=== PATIENT | female | born 1990 | race American Indian/Alaskan Native ===

== ENCOUNTER 2016-10-29 08:44 | Outpatient (CLI) | payer OTHER ==
--- NOTE | 2016-10-29 13:27 | Ultrasound Report ---
Pelvic and transvaginal sonography: History: Amenorrhea. Findings: Uterus measures 9.2 x 3.3 x 4.7 cm. Endometrial thickness 11 mm. No fluid in the endometrium. No mass. Ill-defined endometrial -myometrial interface. Right ovary 3.2 x 1.8 x 3.2 cm. No mass. Left ovary 2.4 x 2.4 x 2.6 cm. No mass. No fluid in the cul-de-sac. Impression: Thick endometrium. No myometrial mass. No mass of the adnexa.
== END 2016-10-29 08:45 | disposition home or self-care (01) ==
LOC: US 08:44
PROVIDERS: ATTEND Hospitalist
DX: E28.2 Polycystic ovarian syndrome (principal)
CPT/HCPCS: 76830; 76856

== ENCOUNTER 2017-07-19 12:38 | Emergency (ER) | payer OTHER ==
[2017-07-19 14:02] VITALS: BP 165/100
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
[2017-07-19] MEDS ORDERED: BOOSTRIX IM ONE (19:10)
[2017-07-19] MEDS ORDERED: MOTRIN PO ONE (19:10)
--- NOTE | 2017-07-19 19:23 | XRay Report ---
FINAL REPORT EXAM: XR ELBOW 3+V RT HISTORY: injury to the right elbow TECHNIQUE: AP, lateral, and oblique views of the right elbow PRIORS: None. FINDINGS: No evidence for acute fracture or dislocation is seen. The soft tissues are unremarkable. The anterior fat pad is normal. No posterior fat pad is noted. Bony mineralization is normal. IMPRESSION: No acute soft tissue or bony abnormality noted.
[2017-07-19] MEDS ORDERED: XYLOCAINE 2%/ EPI 1:200,000 INFILTRATI ONE ×2 (19:25→19:28)
== END 2017-07-19 20:20 | disposition home or self-care (01) ==
LOC: ED 12:38
DX: S51.011A Laceration without foreign body of right elbow, initial encounter (principal); I10 Essential (primary) hypertension; X99.0XXA Assault by sharp glass, initial encounter; Y93.89 Activity, other specified; Y99.8 Other external cause status; Y92.89 Other specified places as the place of occurrence of the external cause
CPT/HCPCS: 90471; 90715